=== PATIENT | female | born 1980 | race African-American/Black ===

== ENCOUNTER 2024-01-13 23:12 | Emergency (ER) | payer MEDICAID ==
[~2024-01-13] VITALS: Ht 175.3 cm; Wt 91.0 kg
[2024-01-13 23:19] VITALS: O2SAT 98
[2024-01-14] MEDS ORDERED: ONDANSETRON HCL 4MG/2ML INJ IV STA (00:22)
[2024-01-14] MEDS ORDERED: MORPHINE SULFATE 4 MG/ML INJ (FOR IV/IM USE) IV STA (00:22)
[2024-01-14 00:46] LABS: BASOPHILS % 0.3 % (0.0-2.0); EOSINOPHILS % 0.4 % (0.0-5.0); HEMATOCRIT. 31.1 % (36.0-48.0); HEMOGLOBIN. 9.6 g/dL (12.0-16.0); LYMPHOCYTES % 3.6 % (20.0-50.0); MEAN CORPUSCULAR HEMOGLOBIN 17.7 pg (28.0-32.0); MEAN CORPUSCULAR HGB CONC 30.8 g/dL (31.0-37.0); MEAN CORPUSCULAR VOLUME 57.3 fL (81.0-99.0); MEAN PLATELET VOLUME 8.9 fl (7.4-10.4); MONOCYTES % 3.9 % (2.0-8.0); NEUTROPHILS % 91.8 % (40.0-76.0); PLATELET 379 x1000/uL (130-400); RED BLOOD CELL COUNT 5.42 mill/uL (4.2-5.4); RED CELL DISTRIBUTION WIDTH 20.7 % (11.6-14.6); WHITE BLOOD COUNT 17.4 x1000/uL (4.5-11.0)
[2024-01-14 00:49] LABS: ADD RBC MORPHOLOGY YES; CHLORIDE 106 mEq/L (98-107); DIFFERENTIAL COMMENT 1; POTASSIUM 3.4 mEq/L (3.5-5.1); SODIUM 140 mEq/L (136-145)
[2024-01-14 00:50] LABS: CALCIUM 9.4 mg/dL (8.7-10.4); CARBON DIOXIDE 23 mEq/L (21-32)
[2024-01-14 00:55] LABS: CREATININE 0.7 mg/dL (0.6-1.0); GLUCOSE 102 mg/dL (70-105); UREA NITROGEN BLOOD 6 mg/dL (9-23)
[2024-01-14 00:56] LABS: TROPONIN I HIGH SENSITIVITY 12 ng/L (3.0-34)
[2024-01-14 01:57] LABS: HYPOCHROMASIA 1+; MICROCYTOSIS 1+; PLATELET ESTIMATE NORMAL; TARGET CELLS 1+
[2024-01-14] MEDS: ONDANSETRON HCL 4MG/2ML INJ IV NR (02:17)
[2024-01-14] MEDS: MORPHINE SULFATE 4 MG/ML INJ (FOR IV/IM USE) IV NR (02:17)
[2024-01-14] MEDS: SODIUM CHLORIDE 0.9% 1,000 ML IV ONE (02:24)
[2024-01-14 03:03] LABS: TROPONIN I HIGH SENSITIVITY 11 ng/L (3.0-34)
[2024-01-14 04:58] VITALS: BP 143/97; PULSE 98; RESP 16; TEMP 36.78072; O2SAT 100
[2024-01-14] MEDS ORDERED: METH-653 MT (05:29)
[2024-01-14] MEDS ORDERED: NAPR-1176 MT (05:29)
[2024-01-14] MEDS ORDERED: IOHEXOL-350 100 ML BOTTLE ONE (08:04)
== END 2024-01-14 05:47 | disposition home or self-care (01) ==
LOC: ER 23:29
DX: R07.89 Other chest pain (principal); I10 Essential (primary) hypertension; Z88.0 Allergy status to penicillin; Z88.2 Allergy status to sulfonamides
CPT/HCPCS: 99285; 96374; 71275; 71045; 96361; 96375; 80048; 83605; 83690; 85025; 85379; 84484; 36415; Q9967; J2405; J2270; J7030